=== PATIENT | male | born 1995 | race Caucasian/White ===

== ENCOUNTER 2016-07-28 05:21 | Observation (INO) ==
[2016-07-28] MEDS ORDERED: Ondansetron 4 MG/2 ML VIAL IVP ONE ×2 (05:57→06:44)
[2016-07-28] MEDS ORDERED: *HR* Morphine 2 MG/ML SYRINGE IVP ONE ×2 (05:57→06:45)
--- NOTE | 2016-07-28 06:03 | Emergency Department Note ---
Disposition Clinical Impression: Dehydration, Nausea & vomiting, Acute appendicitis Disposition: Admitted As Inpatient Condition: Good Nausea/Vomiting/Diarrhea HPI - General Chief complaint: ED Nausea/Vomiting/Diarrhea Stated complaint: Vomiting Time Seen by Provider: 07/28/16 05:34 Source: patient Limitations: language barrier Nursing Notes Reviewed: Yes Vital Signs Reviewed: Yes - History of Present Illness HPI Narrative: 10 episodes of vomiting 2 hours after he ate at [employer]. His girlfriend ate there is well and is not sick. He denies any other sick contacts. He did state he took soap is small and Tums with no relief of his nausea and vomiting. He denies any other associated symptoms. There are no alleviating or provoking factors. He states he has not been able to eat anything for the past 10 hours. - Related Data Home Medications Medication Instructions Recorded Confirmed No Known Home Drugs 07/28/16 07/28/16 Allergies Allergy/AdvReac Type Severity Reaction Status Date / Time No Known Allergies Allergy Verified 08/14/15 03:13 Review of Systems: Patient denies any fever. He denies any headaches or visual changes. He denies any sore throat or rhinorrhea. He denies a cough or shortness of breath. He denies any chest pain. He does report a mid abdominal pain as well as nausea and vomiting. He denies any diarrhea. He denies any hematochezia hematuria melena or hematemesis. He denies any swelling or edema in his extremities. Limitations: ROS unobtainable due to patients medical condition Past Medical History - Past Medical History Medical history: Reports: no medical history Psychiatric history: Reports: anxiety - Social History Smoking Status: Current every day smoker Smokeless Tobacco Status: Yes Alcohol use: Reports: rarely Drug use: Reports: none, marijuana Physical Exam - General Limitations: language barrier General appearance: alert - Head Head exam: atraumatic, normocephalic, normal inspection - Eye Eye exam: Present: normal appearance, PERRL, EOMI - ENT ENT exam: normal exam, normal oropharynx, mucous membranes moist - Neck Neck exam: Present: normal inspection, full ROM, trachea midline. Absent: tenderness, meningismus, lymphadenopathy - Chest Chest inspection: Present: normal inspection, symmetric chest wall rise - Respiratory Respiratory exam: Present: normal lung sounds bilaterally. Absent: respiratory distress, wheezes - Cardiovascular Cardiovascular exam: Present: regular rate, normal rhythm, normal heart sounds - Abdominal Exam Abdominal exam: Present: soft, tenderness (Across the center of his abdomen through his umbilicus. Appears to be more on the left side than the right on palpation. He does guard during palpation.), guarding, normal bowel sounds. Absent: distention, rebound, rigidity, psoas sign, obturator sign, heel tap sign , Oshea's sign, Rovsing's sign, tenderness at McBurney's Point - Extremities Exam Extremities exam: Present: normal inspection, full ROM. Absent: tenderness, pedal edema - Back Exam Back exam: Present: normal inspection, full ROM. Absent: tenderness - Neurological Exam Neurological exam: Present: alert, oriented X3 - Psychiatric Psychiatric exam: Present: normal affect, normal mood - Skin Skin exam: Present: warm, dry, intact, normal color Course Course Narrative: Patient reports several episodes of vomiting 2 hours after eating [employer]. He reports a lower abdominal pain. He states it is 8 out of 10. He denies any diarrhea or fevers. He states his girlfriend did eat the same food that he did and is not sick. He has tried Pepto-Bismol as well as Tums to help with the vomiting which have provided no relief. His pain appears to be across his abdomen more so on the left than the right in the area of his umbilicus. He has no peritoneal signs. He is able to move about with no pain. During his abdominal exam he guards. He has no Oshea's or McBurney's point. Patient is well-appearing and well-developed. His vitals are stable. He has not had a fever while here. We will treat his pain and his nausea. Get basic. We will provide a fluid bolus as well. - Reevaluation(s) Reevaluation #1: Patient rechecked. He states that his abdominal pain is somewhat lessened but still there. He also states he is not as nauseated as when he came in but still slightly nauseated. We will give him more pain medication and Zofran as well as Bentyl. He does have a slightly increased white blood cell count which I believe is probably due to his vomiting. He is not febrile and his vitals were stable while he is here. We will discharge patient with a prescription for Zofran and return precautions. I suggest that he returns to the emergency department were seen by his primary care physician in 12 hours if he still has pain. After the 4 morphine on reexam patient is now tender in his right lower quadrant. We will initiate an abdominal CT with IV contrast. Time: 06:46 Vital Signs Temperature 98.2 F 07/28/16 05:24 Pulse Rate 98 07/28/16 05:24 Respiratory Rate 16 07/28/16 05:24 Blood Pressure 124/86 07/28/16 05:24 O2 Sat by Pulse Oximetry 97 07/28/16 05:24 Temperature 97.9 F 07/28/16 15:50 Pulse Rate 57 07/28/16 15:50 Respiratory Rate 16 07/28/16 16:02 Blood Pressure 134/81 07/28/16 15:50 O2 Sat by Pulse Oximetry 95 07/28/16 16:02 Oxygen Delivery Oxygen Delivery Room Air Nausea/Vomiting/Diarrhea - Medical Records Medical records reviewed: Yes I reviewed the patient's medical records. - Lab Data Lab results reviewed: Yes I reviewed the patient's lab results. Result diagrams: 07/28/16 06:10 07/28/16 06:10 Lab Results 07/28/16 07/28/16 Range/Units 06:10 06:10 WBC 15.7 H (4.3-11.1) K/mcL RBC 4.83 (4.19-5.50) M/mcL Hgb 14.7 (12.9-16.9) g/dL Hct 42.4 (37.5-50.1) % MCV 87.8 (83.0-100.0) fL MCH 30.4 (28.0-33.3) pg MCHC 34.7 (31.6-35.5) g/dL RDW 12.0 (11.5-14.5) % Plt Count 208 (140-400) K/mcL MPV 11.3 (9.4-12.4) fL Immature Gran % 0.3 (0-4) % Seg Neutrophils % 78.1 % Lymphocytes % 13.3 % Monocytes % 8.0 % Eosinophils % 0.0 % Basophils % 0.3 % Neutrophils # 12.2 H (1.6-8.9) K/mcL Lymphocytes # 2.1 (0.6-4.6) K/mcL Monocytes # 1.3 (0.0-1.3) K/mcL Eosinophils # 0.0 (0.0-0.6) K/mcL Basophils # 0.0 (0.0-0.2) K/mcL Sodium 136 (136-145) mEq/L Potassium 3.6 (3.5-4.5) mEq/L Chloride 101 (98-109) mEq/L Carbon Dioxide 27 (19-29) mEq/L BUN 8 (8-26) mg/dL Creatinine 0.84 (0.72-1.25) mg/dL Est GFR ( Amer) > 60 (> 60) Est GFR (Non-Af Amer) > 60 (> 60) BUN/Creatinine Ratio 10 (6-26) Glucose 112 H (70-99) mg/dL Calculated Osmolality 281 (280-300) Calcium 9.5 (8.6-10.8) mg/dL Lipase < 4 L (8-78) Units/L Attestation Statement - Attestation Attestation: I, Ashok Zamudio MD, personally performed a history and physical exam of the patient and discussed their management with the resident. I reviewed the resident's note and agree with the documented findings, medical decision making , and plan of care. 21-year-old male presents to the emergency department with a complaint of repeated episodes of nausea and vomiting which started about 10 hours prior to arrival. He estimates he has vomited about 10 times. The vomiting was bilious in appearance. No blood. There has been no diarrhea. No fever. He does complain of some crampy periumbilical abdominal pain. No flank pain. On examination patient is a well-developed well-nourished well-appearing young male in no acute distress. He is alert and oriented 3. There is no cyanosis or diaphoresis. Breath sounds are clear and equal bilaterally. Heart regular rate and rhythm. Abdomen is soft and moderate periumbilical tenderness and mild guarding. Seems to be slightly worse than left side of the abdomen. Sounds present. Patient given IV fluids, Zofran, and morphine. Abdominal pain labs obtained. Patient does have a leukocytosis. On reexamination patient continues to complain of pain across the lower abdomen just below the umbilicus. He now has increased tenderness on palpation of the lower abdomen with increased guarding and some slight rebound. CT scan of the abdomen and pelvis was ordered and at shift change the patient is being signed out to the oncoming physician Dr. Britton.
[2016-07-28] MEDS ORDERED: 0.9 % Sodium Chloride 500 ML IVC ONE (06:13)
[2016-07-28] MEDS ORDERED: 0.9 % Sodium Chloride 1,000 ML ONE (06:13)
[2016-07-28 06:20] LABS: Basophils % 0.3 %; Hematocrit 42.4 % (37.5-50.1); Hemoglobin 14.7 g/dL (12.9-16.9); Immature Granulocytes % 0.3 % (0-4); Lymphocytes # 2.1 K/mcL (0.6-4.6); Lymphocytes % 13.3 %; Mean Corpuscular HGB Conc 34.7 g/dL (31.6-35.5); Mean Corpuscular Hemoglobin 30.4 pg (28.0-33.3); Mean Corpuscular Volume 87.8 fL (83.0-100.0); Mean Platelet Volume 11.3 fL (9.4-12.4); Monocytes # 1.3 K/mcL (0.0-1.3); Neutrophils # 12.2 K/mcL (1.6-8.9); Platelet Count 208 K/mcL (140-400); Red Blood Count 4.83 M/mcL (4.19-5.50); Segmented Neutrophils % 78.1 %
[2016-07-28] MEDS ORDERED: 0.9 % Sodium Chloride 1,000 ML IVC SCH (06:30)
[2016-07-28 06:36] LABS: BUN/Creatinine Ratio 10 (6-26); Blood Urea Nitrogen 8 mg/dL (8-26); Calcium 9.5 mg/dL (8.6-10.8); Carbon Dioxide 27 mEq/L (19-29); Chloride 101 mEq/L (98-109); Glucose 112 mg/dL (70-99); Osmolality,Calculated 281 (280-300); Potassium 3.6 mEq/L (3.5-4.5); Sodium 136 mEq/L (136-145); eGFR For African Americans > 60 (> 60); eGFR For Non-African Americans > 60 (> 60)
[2016-07-28 06:37] LABS: Lipase < 4 Units/L (8-78)
[2016-07-28] MEDS ORDERED: Piperacillin/Tazobactam 3.375 GM in D5% in Water (Mini-Bag+) 100 ML IVPB ONE (08:33)
--- NOTE | 2016-07-28 08:35 | Emergency Department Note ---
Disposition Clinical Impression: Dehydration, Nausea & vomiting, Acute appendicitis Disposition: Admitted As Inpatient Condition: Good Instructions: Acute Nausea and Vomiting (ED) Additional Instructions: If you develop a fever or if your abdominal pain is not gone in 12 hours please return to the emergency department. Please uses Zofran for your nausea. If your symptoms worsen or have any questions or concerns please return to emergency department. Please drink clear fluids for the next 24 hours. Prescriptions: Ondansetron ODT [Zofran ODT] 4 mg SL Q6HR #10 tab.rapdis Referrals: NO,PCP [Primary Care Provider] - Forms: ED Satisfaction Letter Time of Disposition: 08:35 General Adult HPI - General Chief complaint: ED Nausea/Vomiting/Diarrhea Stated complaint: Vomiting Time Seen by Provider: 07/28/16 05:34 Source: patient Limitations: language barrier - History of Present Illness Pain Scale: 5 - Related Data Previous Rx's Medication Instructions Recorded Mupirocin [Bactroban Oint] 1 appl TP BID #1 tube 08/14/15 Ondansetron ODT [Zofran ODT] 4 mg SL Q6HR #10 tab.rapdis 07/28/16 Allergies Allergy/AdvReac Type Severity Reaction Status Date / Time No Known Allergies Allergy Verified 08/14/15 03:13 Past Medical History - Past Medical History Medical history: Reports: no medical history Psychiatric history: Reports: anxiety - Social History Smoking Status: Current every day smoker Smokeless Tobacco Status: Yes Alcohol use: Reports: rarely Drug use: Reports: none, marijuana Physical Exam - General Limitations: language barrier General appearance: alert Course - Reevaluation(s) Reevaluation #1: 21-year-old male who was seen by assembler 1st shift with abdominal pain that initially was periumbilical now slowly migrated right lower quadrant. White count is elevated CT scan shows a probable appendicitis. Time: 08:33 - Consultations Consultation #1: Discussed with Dr. Mullen, admit. Time: 08:34 Vital Signs Temperature 98.2 F 07/28/16 05:24 Pulse Rate 98 07/28/16 05:24 Respiratory Rate 16 07/28/16 05:24 Blood Pressure 124/86 07/28/16 05:24 O2 Sat by Pulse Oximetry 97 07/28/16 05:24 Temperature 98.9 F 07/28/16 07:20 Pulse Rate 62 07/28/16 07:34 Respiratory Rate 16 07/28/16 07:34 Blood Pressure 117/67 07/28/16 07:34 O2 Sat by Pulse Oximetry 96 07/28/16 07:34 Oxygen Delivery Oxygen Delivery Room Air Medical Decision Making - Lab Data Result diagrams: 07/28/16 06:10 07/28/16 06:10 Lab Results 07/28/16 07/28/16 Range/Units 06:10 06:10 WBC 15.7 H (4.3-11.1) K/mcL RBC 4.83 (4.19-5.50) M/mcL Hgb 14.7 (12.9-16.9) g/dL Hct 42.4 (37.5-50.1) % MCV 87.8 (83.0-100.0) fL MCH 30.4 (28.0-33.3) pg MCHC 34.7 (31.6-35.5) g/dL RDW 12.0 (11.5-14.5) % Plt Count 208 (140-400) K/mcL MPV 11.3 (9.4-12.4) fL Immature Gran % 0.3 (0-4) % Seg Neutrophils % 78.1 % Lymphocytes % 13.3 % Monocytes % 8.0 % Eosinophils % 0.0 % Basophils % 0.3 % Neutrophils # 12.2 H (1.6-8.9) K/mcL Lymphocytes # 2.1 (0.6-4.6) K/mcL Monocytes # 1.3 (0.0-1.3) K/mcL Eosinophils # 0.0 (0.0-0.6) K/mcL Basophils # 0.0 (0.0-0.2) K/mcL Sodium 136 (136-145) mEq/L Potassium 3.6 (3.5-4.5) mEq/L Chloride 101 (98-109) mEq/L Carbon Dioxide 27 (19-29) mEq/L BUN 8 (8-26) mg/dL Creatinine 0.84 (0.72-1.25) mg/dL Est GFR ( Amer) > 60 (> 60) Est GFR (Non-Af Amer) > 60 (> 60) BUN/Creatinine Ratio 10 (6-26) Glucose 112 H (70-99) mg/dL Calculated Osmolality 281 (280-300) Calcium 9.5 (8.6-10.8) mg/dL Lipase < 4 L (8-78) Units/L
[2016-07-28] MEDS ORDERED: Bupivacaine/EPI 1:200k 0.25%PF 30 ML VIAL ONE (09:32)
--- NOTE | 2016-07-28 10:14 | General Surg History&Physical ---
Date of Encounter: 07/28/16 Time of Encounter: 09:30 History of Present Illness HPI: Mr. Franklin is a 21 year old male Past Med Surg Social Fam HX - Past Medical History Medical history: no medical history Psychiatric history: anxiety - Social History Smoking Status: Current every day smoker Smokeless Tobacco Status: Yes Alcohol use: rarely Drug use: none, marijuana Medications and Allergies No Known Home Drugs 07/28/16 [History] Allergies No Known Allergies Allergy (Verified 08/14/15 03:13) Review of Systems All systems PM: A 10-system review of systems was performed and is negative for pertinent findings except as documented above in the HPI. General Surgery Exam Initial Vital Signs Temp Pulse Resp BP Pulse Ox 98.2 F 98 16 124/86 97 07/28/16 05:24 07/28/16 05:24 07/28/16 05:24 07/28/16 05:24 07/28/16 05:24 Results - Labs 07/28/16 06:10 07/28/16 06:10 Abnormal lab results WBC 15.7 K/mcL (4.3-11.1) H 07/28/16 06:10 Neutrophils # 12.2 K/mcL (1.6-8.9) H 07/28/16 06:10 Glucose 112 mg/dL (70-99) H 07/28/16 06:10 Lipase < 4 Units/L (8-78) L 07/28/16 06:10 All other labs normal.
[2016-07-28] MEDS ORDERED: *HR* FentaNYL (PF) 100 MCG/2 ML VIAL ONE (10:18)
[2016-07-28] MEDS ORDERED: *HR* Midazolam HCl 2 MG/2 ML VIAL ONE (10:18)
[2016-07-28] MEDS ORDERED: *HR* Propofol 200 MG/20 ML VIAL IVP ONE (10:18)
[2016-07-28] MEDS ORDERED: *HR* Rocuronium Bromide 50 MG/5 ML VIAL ONE (10:19)
[2016-07-28] MEDS ORDERED: Lidocaine -MPF 2% 2 ML VIAL ONE (10:19)
[2016-07-28] MEDS ORDERED: Albuterol 2.5 MG/3 ML NEBULIZER IH ONE (10:24)
[2016-07-28] MEDS ORDERED: *HR* HYDROmorphone (PF) 1 MG/ML SYRINGE IVP PRN ×2 (10:37→12:59)
--- NOTE | 2016-07-28 10:37 | Anesthesia Evaluation PreOp ---
Date of Encounter: 07/28/16 Time of Encounter: 10:34 - Past History Planned Operation: Laparoscopic Appendectomy Cardiac History: Denies any Significant Hx Pulmonary History: Smoker (2 years) SAFETY AND SECURITY OFFICER History: Denies Any Significant HX Other Medical History: Denies Any Significant HX Anesthesia History: Past Anesthesia (no prior surgery) Alcohol Use: rarely Drug use: none, marijuana Medications and Allergies No Known Home Drugs 07/28/16 [History] Allergies No Known Allergies Allergy (Verified 08/14/15 03:13) - Meds/Allergy Pre-op Review Medications Reviewed: Yes Allergies Reviewed: Yes Beta Blockers on Current Med List: No Anesthesia Results - Labs 07/28/16 06:10 07/28/16 06:10 Anesthesia Exam Vital Signs/O2 Sat, Most Current Temp Pulse Resp BP Pulse Ox 98.9 F 66 16 109/64 96 07/28/16 07:20 07/28/16 08:31 07/28/16 09:53 07/28/16 09:53 07/28/16 08:31 Height: 5'11''/1.8 m Weight: 145 lbs/65.77 kg NPO (# of Hours): 8 Pain Scale: 0 (at rest) Pain Scale Used: Numeric (1 - 10) - HEENT Pupil (Motor): EOMI Mallampati: II Teeth: Normal (chipped upper fron tooth; has braces) Oral Opening: Greater than 3 - SAFETY AND SECURITY OFFICER LOC: Oriented SAFETY AND SECURITY OFFICER Motor: Normal RUE, Normal LUE, Normal RLE, Normal LLE, Normal Face SAFETY AND SECURITY OFFICER Sensory: Normal: RUE, LUE, RLE, LLE, Face - Cardiac Rhythm: Regular Murmur: None - Pulmonary Breath Sounds: bilateral Clear Respiratory Effort: Symmetrical Anesthesia Assess/Plan ASA Score: 2 Modified [place] Scale for Level of Consciousness: Cooperative, oriented, and tranquil Anesthetic Plan: General Monitoring Plan: Standard Monitors Recovery Plan: PACU
[2016-07-28] MEDS ORDERED: CefOXitin 2,000 MG VIAL IVPB ONE (10:41)
--- NOTE | 2016-07-28 10:44 | General Surg History&Physical ---
Date of Encounter: 07/28/16 Time of Encounter: 10:34 History of Present Illness Chief complaint: Right lower quadrant abdominal pain, nausea vomiting HPI: Mr. Franklin is a 21 year old male referred to surgical services after presenting to the emergency department with a 36 hour history of progressive abdominal pain. The patient describes recurrent emesis for the last 10 hours. The symptoms began in the mid abdomen but have migrated to the right lower quadrant. White count is elevated at 15,700; CT abdomen and pelvis demonstrates an enlarged appendix to approximately 10 mm, edematous grider and periappendiceal stranding consistent with acute appendicitis. Edematous changes within the adjacent terminal ileum are also noted and possibly due to underlying inflammatory bowel disease versus reaction related to the adjacent acute appendicitis. The CT was personally reviewed with [facility]. Past medical history: None Surgical history: None Allergies: No known drug allergies Medications: None Social history: Patient admits to occasional tobacco use; he consumes alcohol 2- 3 times weekly and uses marijuana intermittently. The patient is employed as a georges. Family history: Noncontributory Physical examination: Thin, age-appropriate male resting comfortably in his ED bed. He is in no acute distress at the present time. Skin is warm, without obvious jaundice. The patient is afebrile, 98.9; pulse 66, respirations 16, blood pressure 109/64. SPO2 on room air 96%. Lungs: Clear to auscultation, no obvious abdominal pain with deep inspiration Cardiac: Rate regular, no appreciable murmurs Abdomen: Soft, nondistended with tenderness most pronounced in the right lower quadrant. There is referred pain from the left lower quadrant (Rovsing sign). There were no appreciable intra-abdominal masses, no rebound. Bowel sounds were active. Extremities: No obvious clubbing cyanosis or edema. Impression: 21-year-old male with approximately a 36 hour history of progressive abdominal pain nausea and vomiting. He has acute right lower quadrant abdominal pain consistent with acute appendicitis. CT of the abdomen pelvis supports this diagnosis. Treatment options include surgery versus expectant follow-up including IV antibiotics, IV pain medications, and serial abdominal exams. If the symptoms/abdominal pain worsens then surgery can be considered. I have recommended surgery and this has been discussed in detail. The patient is a good candidate for laparoscopic appendectomy but understands that that an open appendectomy may become necessary. Risks of surgery include hemorrhage, infection, intra-abdominal abscess, injury to adjacent structures, and the possible removal of a normal appendix. The patient and his father, who was in attendance, have expressed understanding and are willing to proceed with surgery. Consent has been obtained. Past Med Surg Social Fam HX - Past Medical History Medical history: no medical history Psychiatric history: anxiety - Social History Smoking Status: Current every day smoker Smokeless Tobacco Status: Yes Alcohol use: rarely Drug use: none, marijuana Medications and Allergies No Known Home Drugs 07/28/16 [History] Allergies No Known Allergies Allergy (Verified 08/14/15 03:13) Review of Systems All systems PM: A 10-system review of systems was performed and is negative for pertinent findings except as documented above in the HPI. General Surgery Exam Initial Vital Signs Temp Pulse Resp BP Pulse Ox 98.2 F 98 16 124/86 97 07/28/16 05:24 07/28/16 05:24 07/28/16 05:24 07/28/16 05:24 07/28/16 05:24 Results - Labs 07/28/16 06:10 07/28/16 06:10 Abnormal lab results WBC 15.7 K/mcL (4.3-11.1) H 07/28/16 06:10 Neutrophils # 12.2 K/mcL (1.6-8.9) H 07/28/16 06:10 Glucose 112 mg/dL (70-99) H 07/28/16 06:10 Lipase < 4 Units/L (8-78) L 07/28/16 06:10 All other labs normal.
[2016-07-28] MEDS ORDERED: *HR* Morphine 10 MG/ML VIAL ONE (11:29)
[2016-07-28] MEDS ORDERED: Dexamethasone 4 MG/ML VIAL ONE (11:30)
[2016-07-28] MEDS ORDERED: Neostigmine Methylsulfate 3 MG/3 ML SYRINGE ONE (11:38)
--- NOTE | 2016-07-28 12:05 | Operative Note ---
Date of procedure: 07/28/16 Pre-op diagnosis: acute appendicitis Post-op diagnosis: same Procedure: laparoscopic appendectomy Complications: none apparent Anesthesia: GETA Local Anesthetics: 0.25% Sensorcaine HCL with Epinephrine 1:200,000 SubQ (cc) ( 15mL) Surgeon: Berto Mullen Estimated blood loss (cc): 10 IV fluids (cc): 500 Specimen: appendix Condition: stable Disposition: PACU
--- NOTE | 2016-07-28 12:33 | Anesthesia Evaluation Post Op ---
Date of Encounter: 07/28/16 Time of Encounter: 12:32 - Vital Signs Vital Signs: Vital Signs/O2 Sat, Most Current Temp Pulse Resp BP Pulse Ox 98.7 F 65 14 142/82 96 07/28/16 12:06 07/28/16 12:26 07/28/16 12:26 07/28/16 12:26 07/28/16 12:26 - Lungs Lungs: Clear Ascult./Percussion - Airway Airway: Non-obstructed - Cardiovascular Regular Rate - Mental Status Mental Status: Alert & Oriented, Answers Appropriately - Pain Pain Scale: 3 Pain Scale used: Numeric (1 - 10) - Nausea Vomiting Nausea Vomiting: Not Present - Hydration Hydration: NPO, Has not voided - Discharge PostOp Status: Transfer Patient to floor
[2016-07-28] MEDS ORDERED: Ringers Solution, Lactated 500 ML IVC ONE (12:59)
[2016-07-28] MEDS ORDERED: *HR* OxyCODONE/APAP 5/325 TABLET PO PRN (12:59)
[2016-07-28] MEDS ORDERED: Ondansetron 4 MG/2 ML VIAL IVP PRN (12:59)
[2016-07-28] MEDS: Acetaminophen 325 MG TABLET PO PRN (13:37)
[2016-07-28] MEDS: Ringers Solution, Lactated 1,000 ML IVC SCH (13:42)
[2016-07-28] MEDS: Albuterol 2.5 MG/3 ML NEBULIZER IH SCH ×3 (15:21→21:50)
[2016-07-29] MEDS: Ringers Solution, Lactated 1,000 ML IVC SCH (01:08)
[2016-07-29] MEDS: Albuterol 2.5 MG/3 ML NEBULIZER IH SCH (03:45)
[2016-07-29 03:56] LABS: Basophils % 0.2 %; Eosinophils % 0.1 %; Hematocrit 36.5 % (37.5-50.1); Immature Granulocytes % 0.5 % (0-4); Immature Platelets 9.2 % (1.1-6.1); Lymphocytes # 1.6 K/mcL (0.6-4.6); Mean Corpuscular HGB Conc 33.2 g/dL (31.6-35.5); Mean Corpuscular Hemoglobin 30.5 pg (28.0-33.3); Mean Corpuscular Volume 91.9 fL (83.0-100.0); Mean Platelet Volume 11.8 fL (9.4-12.4); Monocytes # 0.9 K/mcL (0.0-1.3); Neutrophils # 8.5 K/mcL (1.6-8.9); Platelet Count 182 K/mcL (140-400); Red Blood Count 3.97 M/mcL (4.19-5.50); Red Cell Distribution Width 12.2 % (11.5-14.5); Segmented Neutrophils % 77.2 %
[2016-07-29 03:58] LABS: Hemoglobin 12.1 g/dL (12.9-16.9)
[2016-07-29] MEDS: Acetaminophen 325 MG TABLET PO PRN (04:20)
[2016-07-29 06:35] VITALS: BP 120/66
--- NOTE | 2016-07-29 10:09 | General Surgery Progress Note ---
Date of Encounter: 07/29/16 Time of Encounter: 09:45 Subjective Patient reports: no new complaints, still having pain Narrative: General Sugery - Progress Note/ discharge summary POD #1 - feeling better, pain diminished but still present; tolerating diet. Afebrile, 98.0; pulse 62, respirations 16, blood pressure 120/66 Lungs: Clear, no pain on inspiration Cardiac: Regular rate, episodic bradycardia Abdomen: soft, nondistended. Active bowel sounds. Port sites clean and dry. Minimal pain infraumbilical port site as expected. Preoperative right lower quadrant abdominal pain much improved. Laboratories: White count 11.1, hemoglobin 12.1 with hematocrit 36.5. Impression: Postoperative day 1, status post laparoscopic appendectomy for acute appendicitis. Postoperative status much improved, patient recovery satisfactory. Plan: Discharge home Follow up in the office, 08/03/16 Objective Vital Signs - Last 8 Hours Temp Pulse Resp BP Pulse Ox 07/29/16 06:30 98.0 F 62 16 120/66 98 07/29/16 03:45 18 99 07/29/16 03:20 97.6 F 55 16 113/52 98 Intake and Output 07/28/16 07/29/16 07/29/16 23:59 07:59 15:59 Intake Total 1140 / 1140 350 / 350 433 / 433 Output Total 1650 / 1650 0 / 0 Balance -510 / -510 350 / 350 433 / 433 Intake: IV Fluids 900 / 900 350 / 350 313 / 313 Lactated Ringers 1,000 ML 900 / 900 350 / 350 313 / 313 @ 80 mls/hr IVC .[id number] TRINI Rx#:[id number] Oral 240 / 240 120 / 120 Output: Urine 1650 / 1650 0 / 0 Other: Meal Dinner Breakfast Percent of Meal Consumed 5% 25% # Bowel Movements 0 - Labs 07/29/16 03:28 07/28/16 06:10 - VTE Documentation of Mechanical Device: Intermittent pneumatic compression device Consult Discharge Plan - Plan Referrals: NO,PCP [Primary Care Provider] -
--- NOTE | 2016-07-29 10:12 | Discharge Summary ---
Outpatient Proc Discharge Plan - Plan Additional Instructions: Regular diet Patient may shower, wash incisions with soap and water Activities as tolerated, lifting limited to less than 20 pounds Follow-up in the office, 08/03/16, patient to call office in a.m. to make this appointment Tylenol, ibuprofen, Motrin, Advil, Aleve, etc. as needed for pain Description for Percocet 5/325 #15, one every 6 hours as needed for pain not relieved by [id number] medications. Prescriptions: OxyCODONE/APAP 5/325 [Percocet 5/325 MG] 1 each PO Q6HR PRN #15 tablet PRN Reason: Pain Home Medications: Acetaminophen [Tylenol] 650 mg PO Q6HR PRN #0 tablet 07/29/16 [Rx] OxyCODONE/APAP 5/325 [Percocet 5/325 MG] 1 each PO Q6HR PRN #15 tablet 07/29/16 [Rx]
== END 2016-07-29 10:40 | disposition home or self-care (01) ==
LOC: EMEROO 05:21 → 3ANU 05:21
PROVIDERS: ADMIT Surgery; ATTEND Surgery